=== PATIENT | female | born 1980 | race Caucasian/White ===

== ENCOUNTER 2024-01-24 11:07 | Emergency (ER) | payer OTHER, SELFPAY ==
[2024-01-24 11:09] VITALS: BP 178/101; PULSE 67; TEMP 36.4; O2SAT 100; BMI 26.6
[2024-01-24] MEDS: FAMOTIDINE/PF 20 MG/2 ML VIAL IV (11:31)
[2024-01-24] MEDS: 0.9 % SODIUM CHLORIDE 1,000 ML 1000 ML IV (11:31)
[2024-01-24 11:32] LABS: Basophils Absolute Auto 0.1 10^3/uL (0.0-0.1); Basophils Percent Auto 0.5 % (0.2-2.0); Eosinophils Absolute Auto 0.1 10^3/uL (0.0-0.7); Eosinophils Percent Auto 0.4 % (0.9-7.0); Hemoglobin 13.7 g/dL (12.0-16.0); Immature Granulocytes Abs Auto 0.03 10^3/uL (0.00-0.03); Immature Granulocytes Pct Auto 0.2 % (0.0-0.5); Lymphocytes Absolute Auto 1.8 10^3/uL (1.2-3.8); Lymphocytes Percent Auto 14.8 % (20.5-60.0); Mean Corpuscular HGB Conc 32.6 g/dL (29.9-35.2); Mean Corpuscular Hemoglobin 26.5 pg (26.7-34.0); Mean Corpuscular Volume 81.2 fL (81.0-99.0); Mean Platelet Volume 9.5 fL (9.5-13.5); Monocytes Absolute Auto 0.7 10^3/uL (0.3-0.8); Monocytes Percent Auto 5.9 % (1.7-12.0); Neutrophils Absolute Auto 9.6 10^3/uL (1.4-6.5); Neutrophils Percent Auto 78.2 % (43.0-75.0); Platelet Count 490 10^3/uL (150-450); Red Blood Count 5.17 10^6/uL (4.20-5.40); White Blood Count 12.3 10^3/uL (4.0-11.0)
[2024-01-24] MEDS: KETOROLAC TROMETHAMINE 30 MG/ML VIAL 15 MG IVP (11:32)
[2024-01-24] MEDS: PROCHLORPERAZINE 10 MG/2 ML VIAL IV (11:33)
--- NOTE | 2024-01-24 11:43 | ED_ITS ---
HPI - Abdominal Pain General Chief Complaint: Abdominal Pain Stated Complaint: VOMITING Time Seen by Provider: 01/24/24 11:15 Source: patient Mode of arrival: walk-in Limitations: no limitations History of Present Illness HPI narrative: The patient is coming to us with 2 to 3 days history of nausea vomiting and abdominal pain, guarding to her the pain is burning and all over the abdomen, the patient does have a history of smoking marijuana she denies any diarrhea or constipation. She mentioned that she presented to another facility over the last few days and there was no findings on blood workup and CAT scan The patient have no fever no chills no exposure to anybody with similar symptoms Related Data Previous Rx's ?Medication ?Instructions ?Recorded dicyclomine 20 mg tablet 20 mg PO QID PRN abdominal pain 01/24/24 #20 tabs famotidine 20 mg tablet (Pepcid) 20 mg PO BID #10 tabs 01/24/24 ondansetron 4 mg disintegrating 4 mg PO Q8H PRN nausea and 01/24/24 tablet vomiting 3 days #9 tabs pantoprazole 40 mg tablet,delayed 40 mg PO DAILY #30 tabs 01/24/24 release (Protonix) Allergies Allergy/AdvReac Type Severity Reaction Status Date / Time acetaminophen [From Percocet] Allergy Severe Hives Verified 01/24/24 11:09 oxycodone [From Percocet] Allergy Severe Hives Verified 01/24/24 11:09 Review of Systems ROS Status of ROS 10 or more systems reviewed and unremark able except as noted in history and below Exam Narrative Exam Narrative: Nurses notes and vital signs reviewed and patient is not hypoxic. General: Well-appearing and in no apparent distress. Skin: Warm, dry, no pallor noted. No rash. Head: Normocephalic, atraumatic. Neck: Supple, non-tender. Eye: Pupils are equal, round and EOMI. No scleral icterus. Ears, Nose, Mouth, and Throat: TM are clear, no nasal mucosal hypertrophy. Oral mucosa is moist, no posterior oropharynx erythema, uvula is mid-line Cardiovascular: Regular Rate and Rhythm without murmur, gallop or rub. Respiratory: No accessory muscle use or respiratory distress. Lungs are clear to auscultation, no wheezing, rales or rhonchi Chest Wall: no tenderness Back: No midline thoracic or lumbar vertebral tenderness. No CVA tenderness Musculoskeletal: normal ROM, no calf or popliteal tenderness, no lower extremity edema/swelling GI: Abdomen is soft, non-distended. Normal bowel sounds. No masses appreciated. No tenderness to palpation. No rebound, guarding, or rigidity noted. Neurological: A&O x4. No cranial nerve dysfunction observed. No truncal ataxia. Moves all extremities. Sensation intact. Psychiatric: Cooperative and interactive. Normal mood and affect. Constitutional Vital Signs, click to edit/add: Last Vital Signs Temp 97.6 F 01/24/24 11:09 Pulse 74 01/24/24 12:57 Resp 18 01/24/24 12:57 BP 175/89 H 01/24/24 12:57 Pulse Ox 99 01/24/24 12:57 O2 Del Method Room Air 01/24/24 12:57 Course Vital Signs Vital signs: Vital Signs Temperature 97.6 F 01/24/24 11:09 Pulse Rate 67 01/24/24 11:09 Respiratory Rate 18 01/24/24 11:09 Blood Pressure 178/101 H 01/24/24 11:09 Pulse Oximetry 100 01/24/24 11:09 Temperature 97.6 F 01/24/24 11:09 Pulse Rate 74 01/24/24 12:57 Respiratory Rate 18 01/24/24 12:57 Blood Pressure 175/89 H 01/24/24 12:57 Pulse Oximetry 99 01/24/24 12:57 Oxygen Delivery Method Room Air 01/24/24 12:57 MDM - Abdominal Pain MDM Narrative Medical decision making narrative: The patient abdominal examination was completely benign she was not showing any tenderness on examination It was noted that the patient was provided with care and [place] started almost the last few days and she had a CAT scan and a blood workup that showed no acute pathology The patient CBC shows mild leukocytosis of 12 which could be reactive and also she have a chemistry that shows no acute significant pathology with a mildly elevated lipase which could be secondary to GI issues generally Right now the patient was treated in the ER with 1 dose of morphine after which she was discharged with Pepcid Protonix and referred to rheumatology specialist I did speak with the patient that her tox screen shows opiate although she initially mentioned that she did not have any prescription but her opiate prescription 2 days ago that was filled shows otherwise Patient was instructed about monitoring her symptoms I did explain to her that her presentation could be secondary to gastritis The patient is to follow up with primary care physician in next 2-3 days or to return to the emergency department should any of the signs or symptoms worsen or new symptoms develop. The patient agrees with the following Diagnosis and Treatment plan and the patient will be discharged home. Lab Data Labs: Lab Results 01/24/24 Range/Units 11:20 WBC 12.3 H (4.0-11.0) 10^3/uL RBC 5.17 (4.20-5.40) 10^6/uL Hgb 13.7 (12.0-16.0) g/dL Hct 42.0 (36.0-48.0) % MCV 81.2 (81.0-99.0) fL MCH 26.5 L (26.7-34.0) pg MCHC 32.6 (29.9-35.2) g/dL RDW 16.0 H (11.0-15.0) % Plt Count 490 H (150-450) 10^3/uL MPV 9.5 (9.5-13.5) fL Neut % (Auto) 78.2 H (43.0-75.0) % Lymph % (Auto) 14.8 L (20.5-60.0) % Craven % (Auto) 5.9 (1.7-12.0) % Eos % (Auto) 0.4 L (0.9-7.0) % Baso % (Auto) 0.5 (0.2-2.0) % Neut # (Auto) 9.6 H (1.4-6.5) 10^3/uL Lymph # (Auto) 1.8 (1.2-3.8) 10^3/uL Craven # (Auto) 0.7 (0.3-0.8) 10^3/uL Eos # (Auto) 0.1 (0.0-0.7) 10^3/uL Baso # (Auto) 0.1 (0.0-0.1) 10^3/uL Abs Immat Gran (auto) 0.03 (0.00-0.03) 10^3/uL Imm/Tot Granulo (auto) 0.2 (0.0-0.5) % Sodium 141 (136-145) mmol/L Potassium 3.0 L (3.5-5.1) mmol/L Chloride 102 (98-107) mmol/L Carbon Dioxide 25.4 (21.0-32.0) mmol/L Anion Gap 16.6 BUN 12.0 (7.0-18.0) mg/dL Creatinine 0.68 (0.55-1.02) mg/dL Est GFR ( Amer) >60 (>=60) Est GFR (Non-Af Amer) >60 (>=60) BUN/Creatinine Ratio 17.6 Glucose 124 H (74-106) mg/dL Calcium 9.4 (8.5-10.1) mg/dL Total Bilirubin 0.4 (0.2-1.0) mg/dL AST 16 (15-37) U/L ALT 23 (14-59) U/L Alkaline Phosphatase 66 (46-116) U/L Total Protein 7.5 (6.4-8.2) g/dL Albumin 4.1 (3.4-5.0) g/dL Globulin 3.4 g/dL Albumin/Globulin Ratio 1.2 Lipase 101.0 H (16.0-77.0) U/L Serum HCG, Qual Negative (NEGATIVE) Urine Opiates Screen Positive A (NEGATIVE) Ur Buprenorphine Scrn Negative (NEGATIVE) Ur Oxycodone Screen Negative (NEGATIVE) Urine Methadone Screen Negative (NEGATIVE) Ur Barbiturates Screen Negative (NEGATIVE) U Tricyclic Antidepress Negative (NEGATIVE) Ur Phencyclidine Scrn Negative (NEGATIVE) Ur Amphetamines Screen Negative (NEGATIVE) U Methamphetamines Scrn Negative (NEGATIVE) U Benzodiazepines Scrn Negative (NEGATIVE) Urine Cocaine Screen Negative (NEGATIVE) U Cannabinoids Screen Positive A (NEGATIVE) Discharge Plan Discharge Stand Alone Forms: Work/School Release, Portal Instructions Chief Complaint: Abdominal Pain Clinical Impression: Gastritis Patient Disposition: Home, Self-Care Time of Disposition Decision: 12:39 Condition: Good Prescriptions / Home Meds: New famotidine [Pepcid] 20 mg tablet 20 mg PO BID Qty: 10 0RF dicyclomine 20 mg tablet 20 mg PO QID PRN (Reason: abdominal pain) Qty: 20 0RF pantoprazole [Protonix] 40 mg tablet,delayed release (DR/EC) 40 mg PO DAILY Qty: 30 0RF ondansetron 4 mg tablet,disintegrating 4 mg PO Q8H PRN (Reason: nausea and vomiting) 3 Days Qty: 9 0RF Print Language: [place] Instructions: Gastritis (DC), Full Liquid Diet (DC) Referrals: ADONAY YOUSSEF [Physician] - 1 week Timoteo Lopez MD [Primary Care Provider] - 1 week Discharge Date/Time: 01/24/24 12:57
[2024-01-24 11:45] LABS: Alanine Aminotransferase 23 U/L (14-59); Albumin Globulin Ratio 1.2; Albumin Level 4.1 g/dL (3.4-5.0); Alkaline Phosphatase 66 U/L (46-116); Anion Gap 16.6; Aspartate Amino Transferase 16 U/L (15-37); BUN Creatinine Ratio 17.6; Bilirubin Total 0.4 mg/dL (0.2-1.0); Calcium 9.4 mg/dL (8.5-10.1); Carbon Dioxide 25.4 mmol/L (21.0-32.0); Chloride 102 mmol/L (98-107); Estimated GFR (African America >60 (>=60); Estimated GFR (Non-African Ame >60 (>=60); Globulin 3.4 g/dL; Glucose 124 mg/dL (74-106); Sodium 141 mmol/L (136-145); Total Protein 7.5 g/dL (6.4-8.2)
[2024-01-24 11:48] LABS: Amphetamine Screen Urine NEGATIVE (NEGATIVE); Barbiturates Screen Urine NEGATIVE (NEGATIVE); Benzodiazepines Screen Urine NEGATIVE (NEGATIVE); Buprenorphine Screen Urine NEGATIVE (NEGATIVE); Cannabinoid Screen Urine POSITIVE (NEGATIVE); Cocaine Screen Urine NEGATIVE (NEGATIVE); Methadone Screen Urine NEGATIVE (NEGATIVE); Methamphetamines Screen Urine NEGATIVE (NEGATIVE); Opiate Screen Urine POSITIVE (NEGATIVE); Oxycodone Screen Urine NEGATIVE (NEGATIVE); Phencyclidine Screen Urine NEGATIVE (NEGATIVE); Tricyclic Antidepressant Urine NEGATIVE (NEGATIVE)
[2024-01-24 11:53] LABS: HCG Qualitative NEGATIVE (NEGATIVE); Internal Control Within Normal Limits
[2024-01-24] MEDS: MORPHINE SULFATE 2 MG/ML SYRINGE IV (12:43)
[2024-01-24] MEDS: ONDANSETRON PF 4 MG/2 ML VIAL IV (12:43)
[2024-01-24 12:57] VITALS: BP 175/89; PULSE 74; O2SAT 99
== END 2024-01-24 12:57 | disposition home or self-care (01) ==
PROVIDERS: Emergency Provider Emergency Medicine; PCP Family Medicine
DX: K29.70 Gastritis, unspecified, without bleeding (principal)
CPT/HCPCS: 36415; 80053; 80307; 83690; 84703; 85025; 96361; 96374; 96375; 99284; J0780; J1885; J2270; J2405

== ENCOUNTER 2024-01-27 12:27 | Outpatient (OUT) | payer OTHER, SELFPAY ==
[2024-01-27 13:03] LABS: Estimated Average Glucose 100 mg/dL; Glycohemoglobin A1C 5.1 % (4.5-6.2)
== END 2024-01-27 12:28 | disposition home or self-care (01) ==
LOC: LAB 12:31
PROVIDERS: PCP Family Medicine; Visit Provider Family Medicine
DX: E11.29 Type 2 diabetes mellitus with other diabetic kidney complication (principal); R80.9 Proteinuria, unspecified
CPT/HCPCS: 36415; 83036